=== PATIENT | female | born 1995 | race Caucasian/White ===

== ENCOUNTER 2016-10-19 10:22 | Emergency (ER) | payer OTHER ==
[~2016-10-19] VITALS: Ht 162.6 cm; Wt 60.8 kg
[~2016-10-19 10:22] MED LIST: [UNRECOGNIZED DRUG - OTHER] PO
[2016-10-19 10:53] VITALS: BP 125/92
== END 2016-10-19 12:30 | disposition home or self-care (01) ==
LOC: ED 10:22
DX: S46.911A Strain of unspecified muscle, fascia and tendon at shoulder and upper arm level, right arm, initial encounter (principal); X58.XXXA Exposure to other specified factors, initial encounter; Y93.89 Activity, other specified; Y92.89 Other specified places as the place of occurrence of the external cause; Y99.8 Other external cause status
CPT/HCPCS: J1885

== ENCOUNTER → 2017-08-30 | Outpatient (CLI) | payer OTHER | END | disposition home or self-care (01) | LOC: LB 15:51 | DX: Z13.9 Encounter for screening, unspecified (principal) | CPT/HCPCS: 86480 ==